=== PATIENT | female | born 1990 | race African-American/Black ===

== ENCOUNTER 2018-08-13 14:18 | Emergency (ER) | payer MEDICAID, OTHER ==
[~2018-08-13] VITALS: Ht 170.2 cm; Wt 78.0 kg
[2018-08-13 14:22] VITALS: BP 143/90
== END 2018-08-13 18:34 | disposition left against medical advice (07) ==
LOC: ER 14:18
DX: Z53.21 Procedure and treatment not carried out due to patient leaving prior to being seen by health care provider (principal)
CPT/HCPCS: 82962